=== PATIENT | male | born 1945 | race Caucasian/White ===

== ENCOUNTER 2023-09-17 09:50 | Outpatient (RCR) | payer MEDICARE, SELFPAY | END 2023-09-17 23:59 | disposition home or self-care (01) | LOC: RPT 09:50 | PROVIDERS: ATTENDING PHYSICIAN Urology; PRIMARYCARE PHYSICIAN Family Medicine | DX: N31.9 Neuromuscular dysfunction of bladder, unspecified (principal); N40.0 Benign prostatic hyperplasia without lower urinary tract symptoms; R39.11 Hesitancy of micturition; N39.41 Urge incontinence; M62.89 Other specified disorders of muscle | CPT/HCPCS: 97110; 97112; 97140; 97530 ==

== ENCOUNTER 2023-10-08 09:57 | Outpatient (RCR) | payer MEDICARE, SELFPAY | END 2023-10-08 23:59 | disposition home or self-care (01) | LOC: RPT 09:57 | PROVIDERS: ATTENDING PHYSICIAN Urology; PRIMARYCARE PHYSICIAN Family Medicine | DX: N31.9 Neuromuscular dysfunction of bladder, unspecified (principal); N40.0 Benign prostatic hyperplasia without lower urinary tract symptoms; R39.11 Hesitancy of micturition; N39.41 Urge incontinence; Z73.6 Limitation of activities due to disability; M62.89 Other specified disorders of muscle | CPT/HCPCS: 97110; 97112; 97140; 97530 ==

== ENCOUNTER → 2025-02-22 14:09 | Outpatient (REF) | payer MEDICARE, SELFPAY | LOC: HWRCS 14:09 | PROVIDERS: ATTENDING PHYSICIAN Internal Medicine Critical Care Medicine; FAMILY PHYSICIAN Family Medicine | DX: J84.9 Interstitial pulmonary disease, unspecified (principal); R06.09 Other forms of dyspnea | CPT/HCPCS: 71250 ==

== ENCOUNTER → 2025-03-01 09:32 | Outpatient (REF) | payer MEDICARE, SELFPAY | LOC: RST 09:32 | PROVIDERS: ATTENDING PHYSICIAN Internal Medicine Critical Care Medicine; FAMILY PHYSICIAN Family Medicine | DX: R06.09 Other forms of dyspnea (principal) | CPT/HCPCS: 74230; 92611 ==

== ENCOUNTER → 2025-03-02 08:44 | Outpatient (REF) | payer MEDICARE, SELFPAY | LOC: HWRCS 08:44 | PROVIDERS: ATTENDING PHYSICIAN Internal Medicine Critical Care Medicine; FAMILY PHYSICIAN Family Medicine | DX: R06.09 Other forms of dyspnea (principal) | CPT/HCPCS: 93306 ==